=== PATIENT | female | born 1990 | race Two or more races ===

== ENCOUNTER 2016-09-22 12:30 | Observation (INO) | payer MEDICAID | END 2016-09-22 15:05 | disposition home or self-care (01) | DRG 566 | LOC: LDRP 12:30 | PROVIDERS: ADMIT Specialist; ATTEND Specialist | DX: O62.9 Abnormality of forces of labor, unspecified (principal); Z3A.38 38 weeks gestation of pregnancy | CPT/HCPCS: 59025; 76818; 81002; G0378 ==

== ENCOUNTER 2016-09-25 04:09 | Inpatient (IN) | payer MEDICAID ==
[2016-09-25] VITALS (16 sets, daily range): BP systolic 92–117; BP diastolic 48–65
[~2016-09-25] VITALS: Ht 175.3 cm; Wt 131.5 kg
[2016-09-25] MEDS: LACTATED RINGER'S 1,000 ML IV SCH ×3 (03:45→15:00)
[2016-09-25 04:42] LABS: Urine RBC None Seen /hpf (0 - 4)
[2016-09-25 04:49] LABS: Basophils # (auto) 0.1 uL; Basophils % (auto) 0.6 % (0.0-2.0); Eosinophils # (auto) 0.1 uL; Eosinophils % (auto) 0.5 % (0.0-7.0); Lymphocytes # (auto) 3.1 uL; Lymphocytes % (auto) 24.6 % (10.0-50.0); Mean Corpuscular Hemoglobin 31.2 pg (28.0-32.0); Mean Corpuscular Hgb Conc. 33.5 g/dL (32.0-36.0); Mean Corpuscular Volume 93.4 fL (80.0-100.0); Monocytes # (auto) 0.7 uL; Monocytes % (auto) 5.3 % (0.0-12.0); Neutrophils # (auto) 8.8 uL; Platelet Count (auto) 309 10^3/uL (140-450); White Blood Cell 12.8 10^3/uL (4.4-10.8)
[2016-09-25 04:59] LABS: Urine Bilirubin Negative (Negative); Urine Blood Negative /uL (Negative); Urine Color Yellow (Yellow); Urine Glucose Normal (Normal); Urine Granular Cast FEW /lpf (0); Urine Ketone Negative (Negative); Urine Mucus FEW (None Seen); Urine Nitrite Negative (Negative); Urine Squamous Epithelial Cell FEW /hpf (<5); Urine Urobilinogen Normal (Negative); Urine pH 6.5 (5.0-8.0)
[2016-09-25 05:50] LABS: Partial Thromboplastin Time 30.3 sec (22.64-33.71)
[2016-09-25 05:51] LABS: INR 0.82 (0.9-1.15); Prothrombin Time 8.9 sec (9.37-12.3)
[2016-09-25 06:38] LABS: Albumin 2.8 g/dL (3.4-5.0); BUN/Creatinine Ratio 14.3; Bilirubin, Total 0.2 mg/dL (0.2-1.0); Potassium 3.8 mmol/L (3.5-5.1); Total Protein 7.4 g/dL (6.4-8.2)
[2016-09-25] MEDS ORDERED: TETRACAINE 1% INJ 2 ML VIAL IJ ONE (06:44)
[2016-09-25] MEDS ORDERED: MIDAZOLAM HCL 1MG/1ML-2 ML VIAL ONE (06:49)
[2016-09-25] MEDS ORDERED: fentaNYL CITRATE 100 MCG/2 ML VL ONE (06:49)
[2016-09-25] MEDS ORDERED: ePHEDrine SULFATE 50 MG/ML AMP ONE (06:49)
[2016-09-25] MEDS ORDERED: MORPHINE SULF(PF) 0.5MG/ML 10ML VIAL ONE (06:49)
[2016-09-25] MEDS ORDERED: OXYTOCIN 10 UNIT/ML 10ML VIAL ONE (06:49)
[2016-09-25] MEDS ORDERED: SODIUM CHLORIDE LOCK 20 ML ONE (06:49)
[2016-09-25] MEDS ORDERED: ceFAZolin 1GM VL ONE (06:49)
[2016-09-25] MEDS ORDERED: CARBOPROST TROMETHAMINE 250 MCG/1ML VIAL IM ONE (07:04)
[2016-09-25] MEDS ORDERED: MORPHINE SULF INJ 2 MG/ML SYRINGE 1ML IV PRN (08:15)
[2016-09-25] MEDS ORDERED: ONDANSETRON HCL 4 MG/2 ML VIAL IV PRN (08:15)
[2016-09-25] MEDS ORDERED: HYDROmorphone HCL 2 MG/ML VL IV PRN ×2 (08:30→08:45)
[2016-09-25] MEDS ORDERED: LACT. RINGERS/OXYTOCIN 20UNITS 1,000 ML IV SCH (08:30)
[2016-09-25] MEDS ORDERED: NALOXONE HCL 0.4 MG/ML VIAL IV PRN ×2 (08:45)
[2016-09-25] MEDS ORDERED: METOCLOPRAMIDE HCL 5MG/ml INJ 2ml VIAL IV ONE (08:45)
[2016-09-25] MEDS ORDERED: diphenhdrAMINE HCL 50 MG/1 ML VL IV PRN (08:45)
[2016-09-25] MEDS ORDERED: KETOROLAC TROMETH 30 MG/ML 1ML VIAL IV ONE (08:45)
[2016-09-25] MEDS ORDERED: OXYTOCIN 10UNIT/ML 1ML VIAL ONE (08:49)
[2016-09-25] MEDS ORDERED: PREN-96 PO (11:47)
[2016-09-25] MEDS: ceFAZolin 1GM/50ML D5W 50 ML IV SCH ×2 (13:34→22:22)
[2016-09-25] MEDS: KETOROLAC TROMETH 30 MG/ML 1ML VIAL IV PRN (17:05)
[2016-09-25 19:29] LABS: Basophils # (auto) 0.1 uL; Basophils % (auto) 0.4 % (0.0-2.0); Eosinophils # (auto) 0 uL; Eosinophils % (auto) 0.3 % (0.0-7.0); Hematocrit 38.7 % (36.0-46.0); Hemoglobin 12.9 g/dL (12.2-16.2); Lymphocytes # (auto) 1.5 uL; Lymphocytes % (auto) 10.6 % (10.0-50.0); Mean Corpuscular Hgb Conc. 33.4 g/dL (32.0-36.0); Mean Corpuscular Volume 92.7 fL (80.0-100.0); Mean Platelet Volume 8.3 fL (7.4-10.4); Monocytes # (auto) 0.4 uL; Monocytes % (auto) 3.1 % (0.0-12.0); Neutrophils # (auto) 11.8 uL; Neutrophils % (auto) 85.6 % (37.0-80.0); Platelet Count (auto) 279 10^3/uL (140-450); Red Cell Distribution Width 14.5 % (11.6-16.0); White Blood Cell 13.8 10^3/uL (4.4-10.8)
[2016-09-26] VITALS (7 sets, daily range): BP systolic 98–112; BP diastolic 54–74
[2016-09-26] MEDS: KETOROLAC TROMETH 30 MG/ML 1ML VIAL IV PRN ×2 (01:22→09:14)
[2016-09-26] MEDS: ceFAZolin 1GM/50ML D5W 50 ML IV SCH (05:47)
[2016-09-26 06:23] LABS: Basophils # (auto) 0 uL; Basophils % (auto) 0.3 % (0.0-2.0); Eosinophils # (auto) 0 uL; Eosinophils % (auto) 0.2 % (0.0-7.0); Hematocrit 37.5 % (36.0-46.0); Hemoglobin 12.4 g/dL (12.2-16.2); Lymphocytes # (auto) 2.8 uL; Lymphocytes % (auto) 23.5 % (10.0-50.0); Mean Corpuscular Hemoglobin 30.9 pg (28.0-32.0); Mean Corpuscular Volume 93.5 fL (80.0-100.0); Monocytes # (auto) 0.7 uL; Neutrophils # (auto) 8.4 uL; Platelet Count (auto) 256 10^3/uL (140-450); Red Cell Distribution Width 14.9 % (11.6-16.0)
[2016-09-26] MEDS ORDERED: TETANUS-DIPTH-ACEL PERTUSSIS 0.5ML SYRG IM ONE (09:00)
[2016-09-26] MEDS ORDERED: HYDROcodone-ACET 5/325MG TAB PO PRN (10:15)
[2016-09-26] MEDS: DOCUSATE SOD 100 MG CAP PO SCH ×2 (11:55→22:20)
[2016-09-26] MEDS: SIMETHICONE 80 MG CHEWABLE TABLET PO PRN ×2 (11:55→17:37)
[2016-09-26] MEDS: HYDROcodone-ACET 5/325MG TAB PO PRN ×2 (17:37→22:30)
[2016-09-26] MEDS: IBUPROFEN 800 MG TAB PO PRN (19:18)
[2016-09-26] MEDS: LACTATED RINGER'S 1,000 ML IV SCH (20:30)
[2016-09-26] MEDS ORDERED: DOCUSATE SOD 100 MG CAP PO SCH (22:00)
[2016-09-27 03:10] VITALS: BP 113/70
[2016-09-27] MEDS: HYDROcodone-ACET 5/325MG TAB PO PRN ×4 (05:35→21:51)
[2016-09-27] MEDS: IBUPROFEN 800 MG TAB PO PRN ×2 (07:00→16:56)
[2016-09-27 08:00] VITALS: BP 110/63
[2016-09-27] MEDS: DOCUSATE SOD 100 MG CAP PO SCH ×2 (09:33→21:53)
[2016-09-27] MEDS: SIMETHICONE 80 MG CHEWABLE TABLET PO PRN (09:33)
[2016-09-27 12:00] VITALS: BP 111/70
[2016-09-27 16:00] VITALS: BP 120/68
[2016-09-27] MEDS ORDERED: TERBUTALINE SULFATE 1 MG/ML 1ML VIAL SC ONE (18:43)
[2016-09-27 19:30] VITALS: BP 127/73
[2016-09-27 23:30] VITALS: BP 113/69
[2016-09-28 03:30] VITALS: BP 125/74
[2016-09-28] MEDS: IBUPROFEN 800 MG TAB PO PRN (04:13)
[2016-09-28 07:18] VITALS: BP 121/70
== END 2016-09-28 09:12 | disposition home or self-care (01) | DRG 540 ==
LOC: LDRP 04:09
PROVIDERS: ADMIT Specialist; ATTEND Specialist
PROC: 10D00Z1 Extraction of Products of Conception, Low, Open Approach (ICD-10-PCS; principal; 2016-09-25 07:21)
DX: O99.214 Obesity complicating childbirth (principal); Z68.41 Body mass index [BMI] 40.0-44.9, adult; O34.211 Maternal care for low transverse scar from previous cesarean delivery; O69.81X0 Labor and delivery complicated by cord around neck, without compression, not applicable or unspecified; E66.01 Morbid (severe) obesity due to excess calories; Z37.0 Single live birth; Z3A.39 39 weeks gestation of pregnancy; Z90.49 Acquired absence of other specified parts of digestive tract
CPT/HCPCS: 36415; 51702; 59025; 80053; 80307; 81001; 85025; 85610; 85730; 86850; 86900; 86901; 90715; 94762; 96361; 96365; 96366; 96372; J0690; J1885; J2250; J2590

== ENCOUNTER 2018-01-17 12:52 | Emergency (ER) | payer MEDICAID ==
[~2018-01-17] VITALS: Ht 175.3 cm; Wt 111.1 kg
[~2018-01-17 12:52] MED LIST: PREN-96 PO
[2018-01-17 13:34] LABS: Basophils # (auto) 0.1 uL; Basophils % (auto) 0.6 % (0.0-2.0); Eosinophils # (auto) 0 uL; Eosinophils % (auto) 0.2 % (0.0-7.0); Hemoglobin 14.1 g/dL (12.2-16.2); Lymphocytes # (auto) 2.4 uL; Lymphocytes % (auto) 25.6 % (10.0-50.0); Mean Corpuscular Hemoglobin 31.7 pg (28.0-32.0); Mean Corpuscular Hgb Conc. 34.5 g/dL (32.0-36.0); Mean Corpuscular Volume 91.9 fL (80.0-100.0); Monocytes # (auto) 0.4 uL; Monocytes % (auto) 4.8 % (0.0-12.0); Neutrophils # (auto) 6.4 uL; Neutrophils % (auto) 68.8 % (37.0-80.0); Nucleated Red Blood Cells % 0.1 %; Platelet Count (auto) 265 10^3/uL (140-450); Red Blood Cells 4.46 10^6/uL (4.0-5.20); Red Cell Distribution Width 14.7 % (11.8-14.3); White Blood Cell 9.3 10^3/uL (4.4-10.8)
[2018-01-17 13:59] LABS: Urine Bacteria NONE SEEN /hpf (None Seen); Urine Blood 3+ /uL (Negative); Urine Specific Gravity 1.015 (1.001-1.035); Urine WBC 940 /hpf (0 - 5)
[2018-01-17 14:28] VITALS: BP 115/70
== END 2018-01-17 15:54 | disposition home or self-care (01) ==
LOC: ER 12:55
DX: O03.9 Complete or unspecified spontaneous abortion without complication (principal)
CPT/HCPCS: 36415; 76801; 76817; 81001; 84702; 85025

== ENCOUNTER 2019-06-06 14:06 | Emergency (ER) | payer MEDICAID ==
[~2019-06-06] VITALS: Ht 175.3 cm; Wt 113.9 kg
[2019-06-06 15:24] LABS: Urine Bacteria NONE SEEN /hpf (None Seen); Urine Blood 2+ /uL (Negative); Urine Mucus FEW (None Seen); Urine Specific Gravity 1.026 (1.001-1.035); Urine WBC 57 /hpf (0 - 5)
[2019-06-06 18:06] VITALS: BP 145/90
== END 2019-06-06 18:09 | disposition home or self-care (01) ==
LOC: ER 14:11
DX: O20.0 Threatened abortion (principal); O23.41 Unspecified infection of urinary tract in pregnancy, first trimester; Z3A.11 11 weeks gestation of pregnancy
CPT/HCPCS: 36415; 76801; 81001; 84702

== ENCOUNTER 2019-10-18 11:55 | Observation (INO) | payer MEDICAID | END 2019-10-18 12:53 | disposition home or self-care (01) | DRG 566 | LOC: LDRP 11:55 | PROVIDERS: ADMIT Obstetrics & Gynecology; ATTEND Obstetrics & Gynecology | DX: O24.410 Gestational diabetes mellitus in pregnancy, diet controlled (principal); Z3A.30 30 weeks gestation of pregnancy | CPT/HCPCS: 76818; 82962; G0378; 59025; 81002 ==

== ENCOUNTER 2019-10-24 10:41 | Observation (INO) | payer MEDICAID | END 2019-10-24 12:05 | disposition home or self-care (01) | DRG 566 | LOC: LDRP 10:41 | PROVIDERS: ADMIT Specialist; ATTEND Specialist | DX: O24.410 Gestational diabetes mellitus in pregnancy, diet controlled (principal); Z3A.31 31 weeks gestation of pregnancy | CPT/HCPCS: 59025; 76818; 81002; 82962; G0378 ==

== ENCOUNTER 2019-10-27 09:15 | Observation (INO) | payer MEDICAID | END 2019-10-27 11:20 | disposition home or self-care (01) | DRG 566 | LOC: LDRP 09:15 | PROVIDERS: ADMIT Specialist; ATTEND Specialist | DX: O24.410 Gestational diabetes mellitus in pregnancy, diet controlled (principal); Z3A.31 31 weeks gestation of pregnancy | CPT/HCPCS: 59025; 76818; 81002; G0378 ==

== ENCOUNTER 2019-10-31 11:08 | Observation (INO) | payer MEDICAID | END 2019-10-31 12:25 | disposition home or self-care (01) | DRG 566 | LOC: LDRP 11:08 | PROVIDERS: ADMIT Obstetrics & Gynecology; ATTEND Obstetrics & Gynecology | DX: O24.410 Gestational diabetes mellitus in pregnancy, diet controlled (principal); Z3A.32 32 weeks gestation of pregnancy; Z91.040 Latex allergy status | CPT/HCPCS: 59025; 76818; 81002; 82948; 82962; G0378 ==

== ENCOUNTER 2019-11-03 09:39 | Observation (INO) | payer MEDICAID | END 2019-11-03 12:10 | disposition home or self-care (01) | DRG 566 | LOC: LDRP 09:39 | PROVIDERS: ADMIT Obstetrics & Gynecology; ATTEND Obstetrics & Gynecology | DX: O24.419 Gestational diabetes mellitus in pregnancy, unspecified control (principal); Z3A.32 32 weeks gestation of pregnancy | CPT/HCPCS: 59025; 76818; 81002; 82962; G0378 ==

== ENCOUNTER 2019-11-07 08:35 | Observation (INO) | payer MEDICAID | END 2019-11-07 10:20 | disposition home or self-care (01) | DRG 566 | LOC: LDRP 08:35 | PROVIDERS: ADMIT Obstetrics & Gynecology; ATTEND Obstetrics & Gynecology | DX: O24.410 Gestational diabetes mellitus in pregnancy, diet controlled (principal); Z3A.33 33 weeks gestation of pregnancy | CPT/HCPCS: 59025; 76818; 81002; 82948; 82962; G0378 ==

== ENCOUNTER 2019-11-10 08:50 | Observation (INO) | payer MEDICAID | END 2019-11-10 10:00 | disposition home or self-care (01) | DRG 566 | LOC: LDRP 08:50 | PROVIDERS: ADMIT Specialist; ATTEND Specialist | DX: O24.410 Gestational diabetes mellitus in pregnancy, diet controlled (principal); Z3A.33 33 weeks gestation of pregnancy; Z98.891 History of uterine scar from previous surgery | CPT/HCPCS: 59025; 76818; 81002; 82948; 82962; G0378 ==

== ENCOUNTER 2019-11-14 09:21 | Observation (INO) | payer MEDICAID ==
[2019-11-14 11:28] LABS: Urine Bacteria FEW /hpf (None Seen); Urine Blood Negative /uL (Negative); Urine Mucus FEW (None Seen); Urine Specific Gravity 1.026 (1.001-1.035); Urine WBC 72 /hpf (0 - 5)
== END 2019-11-14 11:59 | disposition home or self-care (01) | DRG 566 ==
LOC: LDRP 09:21
PROVIDERS: ADMIT Specialist; ATTEND Specialist
DX: O24.410 Gestational diabetes mellitus in pregnancy, diet controlled (principal); Z3A.34 34 weeks gestation of pregnancy; Z98.891 History of uterine scar from previous surgery; Z98.890 Other specified postprocedural states
CPT/HCPCS: 59025; 76818; 81001; 81002; 82948; 82962; G0378

== ENCOUNTER 2019-11-17 07:03 | Observation (INO) | payer MEDICAID | END 2019-11-17 12:13 | disposition home or self-care (01) | DRG 566 | LOC: LDRP 10:55 | PROVIDERS: ADMIT Specialist; ATTEND Specialist | DX: O24.410 Gestational diabetes mellitus in pregnancy, diet controlled (principal); Z3A.34 34 weeks gestation of pregnancy | CPT/HCPCS: 59025; 76818; 81002; 82948; 82962; G0378 ==

== ENCOUNTER 2019-11-21 19:01 | Observation (INO) | payer MEDICAID | END 2019-11-21 21:05 | disposition home or self-care (01) | DRG 566 | LOC: LDRP 19:01 | PROVIDERS: ADMIT Specialist; ATTEND Specialist | DX: O24.419 Gestational diabetes mellitus in pregnancy, unspecified control (principal); Z3A.35 35 weeks gestation of pregnancy | CPT/HCPCS: 59025; 76818; 81002; 82948; 82962; G0378 ==

== ENCOUNTER 2019-11-24 09:11 | Observation (INO) | payer MEDICAID | END 2019-11-24 10:47 | disposition home or self-care (01) | DRG 566 | LOC: LDRP 09:11 | PROVIDERS: ADMIT Specialist; ATTEND Specialist | DX: O24.419 Gestational diabetes mellitus in pregnancy, unspecified control (principal); O62.9 Abnormality of forces of labor, unspecified; Z3A.35 35 weeks gestation of pregnancy | CPT/HCPCS: 59025; 76818; 81002; 82948; 82962; G0378 ==

== ENCOUNTER 2019-11-28 08:19 | Observation (INO) | payer MEDICAID | END 2019-11-28 09:46 | disposition home or self-care (01) | DRG 566 | LOC: LDRP 08:19 | PROVIDERS: ADMIT Obstetrics & Gynecology; ATTEND Obstetrics & Gynecology | DX: O24.415 Gestational diabetes mellitus in pregnancy, controlled by oral hypoglycemic drugs (principal); Z3A.36 36 weeks gestation of pregnancy | CPT/HCPCS: 59025; 76818; 81002; 82948; 82962; G0378 ==

== ENCOUNTER 2019-12-01 08:20 | Observation (INO) | payer MEDICAID | END 2019-12-01 09:40 | disposition home or self-care (01) | DRG 566 | LOC: LDRP 08:20 | PROVIDERS: ADMIT Specialist; ATTEND Specialist | DX: O24.410 Gestational diabetes mellitus in pregnancy, diet controlled (principal); Z3A.36 36 weeks gestation of pregnancy | CPT/HCPCS: 59025; 76818; 81002; 82948; 82962; G0378 ==

== ENCOUNTER 2019-12-05 08:39 | Observation (INO) | payer MEDICAID | END 2019-12-05 10:05 | disposition home or self-care (01) | DRG 566 | LOC: LDRP 08:39 | PROVIDERS: ADMIT Specialist; ATTEND Specialist | DX: O24.410 Gestational diabetes mellitus in pregnancy, diet controlled (principal); Z3A.37 37 weeks gestation of pregnancy | CPT/HCPCS: 59025; 76818; 81002; 82948; 82962; G0378 ==

== ENCOUNTER 2019-12-08 08:30 | Observation (INO) | payer MEDICAID | END 2019-12-08 10:04 | disposition home or self-care (01) | DRG 137 | LOC: LDRP 08:30 | PROVIDERS: ADMIT Specialist; ATTEND Specialist | DX: U07.1 COVID-19 (principal); O24.410 Gestational diabetes mellitus in pregnancy, diet controlled; Z3A.37 37 weeks gestation of pregnancy; Z98.891 History of uterine scar from previous surgery | CPT/HCPCS: 59025; 76818; 81002; 82948; 82962; G0378; U0003 ==

== ENCOUNTER 2019-12-12 08:50 | Observation (INO) | payer MEDICAID ==
[~2019-12-12] VITALS: Ht 175.3 cm; Wt 127.0 kg
== END 2019-12-12 11:20 | disposition home or self-care (01) | DRG 566 ==
LOC: LDRP 08:50
PROVIDERS: ADMIT Specialist; ATTEND Specialist
DX: O98.513 Other viral diseases complicating pregnancy, third trimester (principal); U07.1 COVID-19; O24.410 Gestational diabetes mellitus in pregnancy, diet controlled; O99.513 Diseases of the respiratory system complicating pregnancy, third trimester; R05 Cough; Z3A.38 38 weeks gestation of pregnancy; Z98.891 History of uterine scar from previous surgery
CPT/HCPCS: 59025; 76818; 81002; 82948; 82962; G0378

== ENCOUNTER 2019-12-15 09:18 | Observation (INO) | payer MEDICAID | END 2019-12-15 11:40 | disposition home or self-care (01) | DRG 566 | LOC: LDRP 09:18 | PROVIDERS: ADMIT Specialist; ATTEND Specialist | DX: O24.419 Gestational diabetes mellitus in pregnancy, unspecified control (principal); Z3A.38 38 weeks gestation of pregnancy | CPT/HCPCS: 59025; 76818; 81002; G0378 ==

== ENCOUNTER 2019-12-18 07:20 | Inpatient (IN) | payer MEDICAID ==
[2019-12-18] VITALS (12 sets, daily range): BP systolic 90–114; BP diastolic 52–59
[~2019-12-18] VITALS: Ht 175.3 cm; Wt 128.4 kg
[2019-12-18] MEDS ORDERED: LACTATED RINGER'S 1,000 ML IV SCH (07:58)
[2019-12-18 08:19] LABS: Urine Bacteria MOD /hpf (None Seen); Urine Blood TRACE /uL (Negative); Urine Mucus FEW (None Seen); Urine Specific Gravity 1.025 (1.001-1.035); Urine WBC 310 /hpf (0 - 5)
[2019-12-18 08:56] LABS: Basophils # (auto) 0 10 ^3/uL (0-0.2); Basophils % (auto) 0.5 % (0.0-2.0); Eosinophils # (auto) 0 10 ^3/uL (0-0.8); Eosinophils % (auto) 0.1 % (0.0-7.0); Hematocrit 37.5 % (36.0-46.0); Hemoglobin 12.5 g/dL (12.2-16.2); Lymphocytes # (auto) 2.2 10 ^3/uL (0.4-5.4); Lymphocytes % (auto) 22.6 % (10.0-50.0); Mean Corpuscular Hgb Conc. 33.3 g/dL (32.0-36.0); Mean Corpuscular Volume 92.9 fL (80.0-100.0); Monocytes # (auto) 0.5 10 ^3/uL (0-1.3); Monocytes % (auto) 5.5 % (0.0-12.0); Neutrophils % (auto) 71.3 % (37.0-80.0); Nucleated Red Blood Cells % 0.1 %; Platelet Count (auto) 258 10^3/uL (140-450); Red Blood Cells 4.04 10^6/uL (4.0-5.20); Red Cell Distribution Width 14.4 % (11.8-14.3); White Blood Cell 9.8 10^3/uL (4.4-10.8)
[2019-12-18 09:11] LABS: INR 0.96 (0.9-1.15); Partial Thromboplastin Time 26.3 sec (23.64-32.05)
[2019-12-18 09:15] LABS: Albumin 2.5 g/dL (3.4-5.0); Calcium 8.5 mg/dL (8.5-10.1); Potassium 3.4 mmol/L (3.5-5.1)
[2019-12-18 09:19] LABS: BUN/Creatinine Ratio 19.6; Bilirubin, Total 0.4 mg/dL (0.2-1.0); Total Protein 6.5 g/dL (6.4-8.2)
[2019-12-18] MEDS ORDERED: fentaNYL CITRATE 100 MCG/2 ML VL ONE (10:37)
[2019-12-18] MEDS ORDERED: MORPHINE SULF(PF) 0.5MG/ML 10ML VIAL ONE (10:37)
[2019-12-18] MEDS ORDERED: ROCURONIUM 10MG/ML 10ML VIAL IV ONE (10:38)
[2019-12-18] MEDS ORDERED: ePHEDrine SULFATE 50 MG/ML AMP ONE (10:38)
[2019-12-18] MEDS ORDERED: ceFAZolin 1GM VL ONE (10:38)
[2019-12-18] MEDS ORDERED: PROPOFOL 10 MG/ML 20 ML IV ONE (10:38)
[2019-12-18] MEDS ORDERED: GLYCOPYRROLATE 0.2 MG/ML 1ML VIAL ONE (10:38)
[2019-12-18] MEDS ORDERED: ONDANSETRON HCL 4 MG/2 ML VIAL ONE (10:38)
[2019-12-18] MEDS ORDERED: OXYTOCIN 10UNIT/ML 1ML VIAL ONE (10:38)
[2019-12-18] MEDS ORDERED: EZ-GAS II GRANULES (RADIOLOGY USE) PO ONE (11:00)
[2019-12-18] MEDS ORDERED: ceFAZolin 1GM/50ML 50 ML IV ONE (11:36)
[2019-12-18] MEDS ORDERED: FAMOTIDINE (10MG/ML) 2ML VL IV ONE (12:24)
[2019-12-18] MEDS ORDERED: MEPERIDINE HCL (25 MG/ML) 1ML VIAL ONE (13:10)
[2019-12-18] MEDS ORDERED: ePHEDrine SULFATE 50 MG/ML AMP IV PRN (14:30)
[2019-12-18] MEDS ORDERED: GUM (CHEWING) 1 GUM CHEW CHEW ONE (14:30)
[2019-12-18] MEDS ORDERED: HYDROmorphone HCL 2 MG/ML VL IV PRN (14:30)
[2019-12-18] MEDS ORDERED: ONDANSETRON HCL 4 MG/2 ML VIAL IV PRN ×3 (14:30→18:00)
[2019-12-18] MEDS ORDERED: ACETAMINOPHEN IV 1000 MG/100ML (10MG/ML) IV PRN ×3 (14:30→17:00)
[2019-12-18] MEDS ORDERED: ceFAZolin 1GM/50ML 50 ML IV SCH (14:30)
--- NOTE | 2019-12-18 14:40 | NUR ---
Post Op for LDRP: Received patient from OR via bed to room 1 following COVID positive PT protocol. Patient A/A/Ox4, abdominal binder and bilateral SCD's are in place, IV fluids placed on pump and infusing per order, incisional site dressing clean/dry/intact and Tovar Catheter to gravity draining clear yellow urine. Incentive Spirometer at bedside and instruction on proper use with return demonstration done by patient.
[2019-12-18] MEDS ORDERED: DexAMETHasone SOD PHOS 10MG/1ML VIAL INJ IV PRN (15:00)
[2019-12-18] MEDS ORDERED: NALOXONE HCL 0.4 MG/ML VIAL IV PRN (15:00)
[2019-12-18] MEDS ORDERED: NALBUPHINE HCL 10 MG/1ml INJECTION SUBCUT ONE (15:00)
[2019-12-18] MEDS ORDERED: diphenhdrAMINE HCL 50 MG/1 ML VL IV PRN (15:00)
--- NOTE | 2019-12-18 17:30 | NUR ---
Aiden care performed at this time, PT tolerated well. New aiden pad and chux placed
[2019-12-18] MEDS: ceFAZolin 1GM/50ML 50 ML IV SCH (20:49)
[2019-12-19] MEDS: KETOROLAC TROMETH 30 MG/ML 1ML VIAL IV PRN ×2 (01:34→08:26)
--- NOTE | 2019-12-19 01:40 | NUR ---
Ambulation: Patient OOB with standby assistance by RN. Patient ambulated to chair with steady gait. Pericare perfomed, clean gown provided, and bed linen changed. Patient ambulated back to bed with steady gait and no distress noted.
[2019-12-19 02:30] VITALS: BP 100/55
[2019-12-19] MEDS: ceFAZolin 1GM/50ML 50 ML IV SCH ×2 (05:19→13:08)
--- NOTE | 2019-12-19 05:25 | NUR ---
Gaming catheter dc'd Order to discontinue gaming catheter. Gaming dc'd with clean technique following deflation of balloon. Patient tolerated well with no complaints of pain. Continue care.
[2019-12-19 06:08] LABS: RPR Non Reactive (Non Reactive)
[2019-12-19 07:09] VITALS: BP 107/61
[2019-12-19 07:35] LABS: Basophils # (auto) 0.1 10 ^3/uL (0-0.2); Basophils % (auto) 0.5 % (0.0-2.0); Eosinophils # (auto) 0 10 ^3/uL (0-0.8); Eosinophils % (auto) 0.3 % (0.0-7.0); Hematocrit 36.3 % (36.0-46.0); Lymphocytes % (auto) 20.2 % (10.0-50.0); Mean Corpuscular Hemoglobin 30.9 pg (28.0-32.0); Mean Corpuscular Hgb Conc. 33.1 g/dL (32.0-36.0); Mean Corpuscular Volume 93.2 fL (80.0-100.0); Monocytes # (auto) 0.8 10 ^3/uL (0-1.3); Monocytes % (auto) 7.8 % (0.0-12.0); Neutrophils # (auto) 7.2 10 ^3/uL (1.6-8.6); Neutrophils % (auto) 71.2 % (37.0-80.0); Platelet Count (auto) 223 10^3/uL (140-450); Red Cell Distribution Width 14.5 % (11.8-14.3); White Blood Cell 10.1 10^3/uL (4.4-10.8)
--- NOTE | 2019-12-19 09:34 | NUR ---
Dr. Anguiano notified PT is passing gas and tolerating clear liquid diet. Received order for Post Op day 1 order set.
[2019-12-19] MEDS ORDERED: SIMETHICONE 80 MG CHEWABLE TABLET PO PRN (09:45)
[2019-12-19] MEDS ORDERED: HYDROcodone-ACET 5/325MG TAB PO PRN (09:45)
[2019-12-19] MEDS: DOCUSATE SOD 100 MG CAP PO SCH ×2 (10:17→22:19)
[2019-12-19 11:00] VITALS: BP 106/61
[2019-12-19] MEDS: HYDROcodone-ACET 5/325MG TAB PO PRN ×2 (13:06→18:31)
[2019-12-19 15:00] VITALS: BP 93/62
[2019-12-19] MEDS: IBUPROFEN 800 MG TAB PO PRN (17:38)
[2019-12-19 18:30] VITALS: BP 102/58
[2019-12-19 23:30] VITALS: BP 93/56
[2019-12-20] MEDS: IBUPROFEN 800 MG TAB PO PRN ×3 (01:24→22:19)
[2019-12-20 02:45] VITALS: BP 101/53
[2019-12-20] MEDS: HYDROcodone-ACET 5/325MG TAB PO PRN ×2 (04:11→15:04)
[2019-12-20 06:37] VITALS: BP 97/55
[2019-12-20] MEDS: DOCUSATE SOD 100 MG CAP PO SCH ×2 (09:59→22:18)
[2019-12-20 10:59] VITALS: BP 97/70
[2019-12-20 14:57] VITALS: BP 100/69
[2019-12-20 18:30] VITALS: BP 122/59
[2019-12-20] MEDS ORDERED: BISACODYL 10 MG RECT SUPP PR PRN (22:00)
[2019-12-20 23:00] VITALS: BP 108/63
[2019-12-21 03:27] VITALS: BP 107/65
[2019-12-21] MEDS ORDERED: TETANUS-DIPTH-ACEL PERTUSSIS 0.5ML SYR Tdap IM ONE (04:00)
[2019-12-21 06:55] VITALS: BP 112/62
--- NOTE | 2019-12-21 07:30 | NUR ---
IV removal IV DC'd with clean sterile technique, catheter fully intact. Pressure dressing applied to site. Patient tolerated well. Addendum: 12/21/19 at 0816 by GERA DUKE RN Amended: Links added.
[2019-12-21] MEDS: IBUPROFEN 800 MG TAB PO PRN (08:01)
--- NOTE | 2019-12-21 09:00 | NUR ---
Discharge: Discharge instructions given as ordered. Pt encouraged to follow up with [facility] as instructed. All questions and concerns addressed. Patient verbalized understanding. Medication reconciliation completed and copy given to patient. All required/requested vaccines given and copies of vaccinations given to patient. Patient encouraged to prepare to depart unit.
--- NOTE | 2019-12-21 09:48 | NUR ---
Discharge: Patient taken to vehicle via wheelchair with all personal belongings, accompanied by staff and family member. No distress noted at time of departure, no adverse changes in status since initial assessment.
== END 2019-12-21 10:02 | disposition home or self-care (01) | DRG 540 ==
LOC: LDRP 07:20
PROVIDERS: ADMIT Specialist; ATTEND Specialist
PROC: 0UL70CZ Occlusion of Bilateral Fallopian Tubes with Extraluminal Device, Open Approach (ICD-10-PCS; 2019-12-18)
PROC: 10D00Z1 Extraction of Products of Conception, Low, Open Approach (ICD-10-PCS; principal; 2019-12-18 12:50)
DX: O34.211 Maternal care for low transverse scar from previous cesarean delivery (principal); Z20.828 Contact with and (suspected) exposure to other viral communicable diseases; Z37.0 Single live birth; Z3A.39 39 weeks gestation of pregnancy; Z86.19 Personal history of other infectious and parasitic diseases; Z30.2 Encounter for sterilization
CPT/HCPCS: 36415; 80053; 81001; 84112; 85025; 85610; 85730; 86592; 86850; 86900; 86901; 90715; 94762; 96360; 96361; 96365; 96366; 96372; G0378; J0131; J0690; J1885; J2405; J2704; J3490

== ENCOUNTER 2023-05-07 18:40 | Emergency (ER) | payer MEDICAID ==
[~2023-05-07] VITALS: Ht 172.7 cm; Wt 113.0 kg
[2023-05-07] MEDS ORDERED: ONDANSETRON ODT 4 MG TAB PO ONE (20:15)
[2023-05-07] MEDS ORDERED: ONDANSETRON ODT 4 MG TAB ONE (20:37)
[2023-05-07 21:21] LABS: COVID19 ANTIGEN SOFIA FIA NEGATIVE (NEGATIVE)
[2023-05-07 21:24] LABS: Rapid Influenza A Negative (Negative)
[2023-05-07 21:27] LABS: Rapid Influenza B Positive (Negative)
[2023-05-07 21:50] VITALS: BP 106/72; PULSE 62; RESP 18; TEMP 98.4; O2SAT 94
== END 2023-05-07 22:15 | disposition home or self-care (01) ==
LOC: ER 18:40
DX: J10.1 Influenza due to other identified influenza virus with other respiratory manifestations (principal); Z20.822 Contact with and (suspected) exposure to COVID-19; Z98.890 Other specified postprocedural states
CPT/HCPCS: 36415; 71045; 87426; 87804; Q0162